=== PATIENT | male | born 1990 | race Caucasian/White ===

== ENCOUNTER 2022-01-25 08:54 | Emergency (ER) | payer SELFPAY | END 2022-01-25 09:01 | disposition left against medical advice (07) | LOC: ERS 08:54 | DX: Z53.21 Procedure and treatment not carried out due to patient leaving prior to being seen by health care provider (principal) ==

== ENCOUNTER 2023-07-01 09:44 | Outpatient (CLI) | payer OTHER, SELFPAY | END 2023-07-01 09:45 | disposition home or self-care (01) | LOC: RAD 09:44 | PROVIDERS: ATTEND Emergency Medicine | DX: M25.562 Pain in left knee (principal) ==